=== PATIENT | female | born 1965 | race Asian ===

== ENCOUNTER 2022-01-16 09:46 | Day surgery (SDC) | payer BC ==
[2022-01-09 15:47] VITALS: BMI 23.4
[2022-01-16] MEDS ORDERED: LIDOCAINE HCL 2% (20ML MULTI-DOSE VIAL) ONE (10:39)
[2022-01-16] MEDS ORDERED: MIDAZOLAM HCL 2 MG/2 ML SINGLE DOSE VIAL ONE (10:41)
[2022-01-16] MEDS ORDERED: PROPOFOL 20 ML ONE ×5 (10:41)
[2022-01-16] MEDS ORDERED: BUPIVACAINE HCL/PF 0.25% (2.5MG/ML) 10 ML VIAL IJ ONE (11:50)
[2022-01-16] MEDS ORDERED: ePHEDrine SULFATE 50 MG/1 ML AMPULE ONE (11:50)
[2022-01-16] MEDS ORDERED: oxyCODONE HCL 5 MG TABLET PO PRN ×2 (12:28)
[2022-01-16] MEDS ORDERED: ONDANSETRON 4 MG/2 ML VIAL IVPUSH PRN (12:28)
[2022-01-16] MEDS ORDERED: LACTATED RINGERS SOLUTION 1,000 ML IV SCH (12:30)
[2022-01-16 12:52] VITALS: TEMP 97.2
[2022-01-16 13:17] VITALS: BP 114/72; PULSE 74
== END 2022-01-16 13:30 | disposition home or self-care (01) ==
LOC: FASU 09:46
PROVIDERS: ATTEND Orthopaedic Surgery Hand Surgery
PROC: 01N54ZZ Release Median Nerve, Percutaneous Endoscopic Approach (ICD-10-PCS; principal; 2022-01-16 11:39)
DX: G56.01 Carpal tunnel syndrome, right upper limb (principal)
CPT/HCPCS: 84703; 94760